=== PATIENT | male | born 1980 | race African-American/Black ===

== ENCOUNTER 2017-09-28 20:04 | Emergency (ER) | payer OTHER ==
[2017-09-28] MEDS: ACETAMINOPHEN 500 MG TAB PO (20:22)
[2017-09-28] MEDS: ONDANSETRON (ODT) 4 MG TAB ODT (20:22)
== END 2017-09-28 21:59 | disposition home or self-care (01) ==
LOC: E/R 20:04
DX: S09.90XA Unspecified injury of head, initial encounter (principal); R51 Headache; R07.9 Chest pain, unspecified; W26.8XXA Contact with other sharp object(s), not elsewhere classified, initial encounter; Y92.9 Unspecified place or not applicable
CPT/HCPCS: 70450; 71045; 99284-25